=== PATIENT | female | born 1980 | race Two or more races ===

== ENCOUNTER 2022-08-18 00:42 | Inpatient (IN) | payer OTHER ==
[~2022-08-18] VITALS: Ht 157.5 cm; Wt 66.2 kg
--- NOTE | 2022-08-18 00:45 | NUR ---
PACIENTE TRAIDO EN AMBULANCE TRANSFERIDO DEL [facility] POR APPENDICITIS JASON ACEPTADO POR EL DR. MERA Y EL DR. KNOX. LLEGA CON CANALIZADA EN EL BRAZO HAMILTON #20.
--- NOTE | 2022-08-18 00:57 | NUR ---
PARAMEDICOS NO PRESENTAN JASON AL DR. LOZANO.
--- NOTE | 2022-08-18 01:41 | NUR ---
PTE EVALUADA POR DR MARTA [facility] [facility]. SHELDON CASTANO ORIENTA A PTE SOBRE EL MISMO. SE COLECTAN MUESTRAS DE CHANTAL BAJO MEDIDAS ASEPTICAS Y SE ENVIAN A LABORATORIO. SE CANALIZA BAJO MEDIDAS ASEPTICAS Y SE ADMINISTRAN MEDICAMENTOS GASPER ORDEN. SE EDUCA A PTE SOBRE MANTENERSE NPO. SE ENTREGA ENVASE PARA U/A. SE NOTIFICA X-RAY.
--- NOTE | 2022-08-18 07:41 | NUR ---
PTE SE OBSERVA A/O X4. PTE SE OBSERVA CON VENOPUNCION PATENTE REJI DE EDEMA Y ERITEMA DONDE TIENE BAJANDO 0.9 DE NSS DE 1000 ML @ 150 ML/HR.
== END 2022-08-19 12:34 | disposition home or self-care (01) | DRG 343 ==
LOC: ER 00:42 → SEC-K 09:35 → O/R 17:02 → SURH 21:25
PROVIDERS: Surgery; ADMIT Internal Medicine; ATTEND Internal Medicine
PROC: 0WQF4ZZ Repair Abdominal Wall, Percutaneous Endoscopic Approach (ICD-10-PCS; 2022-08-18)
PROC: 0DTJ4ZZ Resection of Appendix, Percutaneous Endoscopic Approach (ICD-10-PCS; principal; 2022-08-18 17:30)
DX: K35.890 Other acute appendicitis without perforation or gangrene (principal); K43.9 Ventral hernia without obstruction or gangrene; Z20.822 Contact with and (suspected) exposure to COVID-19

== ENCOUNTER 2022-09-21 18:13 | Emergency (ER) | payer OTHER ==
[~2022-09-21] VITALS: Ht 157.5 cm; Wt 63.5 kg
[2022-09-21] MEDS ORDERED: SYNTHROID75 MCG PO (18:16)
[2022-09-21] MEDS ORDERED: DICY20TA PO (21:39)
[2022-09-21] MEDS ORDERED: INTESTINEX680 M1 PO (21:39)
[2022-09-21] MEDS ORDERED: PEPCID AC20 MG PO (21:39)
[2022-09-21] MEDS ORDERED: KETO10TA2 PO (21:39)
== END 2022-09-21 21:44 | disposition home or self-care (01) ==
LOC: ER 18:13
DX: R10.31 Right lower quadrant pain (principal)